=== PATIENT | male | born 1945 | race Caucasian/White ===

== ENCOUNTER → 2023-10-16 08:24 | Outpatient (REF) | payer MEDICARE, OTHER, SELFPAY | LOC: RCS 08:24 | PROVIDERS: ATTENDING PHYSICIAN Internal Medicine Cardiovascular Disease; FAMILY PHYSICIAN Family Medicine | DX: I48.0 Paroxysmal atrial fibrillation (principal); Z95.0 Presence of cardiac pacemaker; I10 Essential (primary) hypertension; I48.19 Other persistent atrial fibrillation | CPT/HCPCS: 93306 ==

== ENCOUNTER → 2023-10-23 10:43 | Outpatient (REF) | payer MEDICARE, OTHER, SELFPAY ==
[2023-10-23 12:30] LABS: PSA, Total - Diagnostic 0.26 ng/ml (0.0-4.0)
== END ==
LOC: REG 10:43
PROVIDERS: ATTENDING PHYSICIAN Family Medicine Geriatric Medicine; FAMILY PHYSICIAN Family Medicine
DX: C61 Malignant neoplasm of prostate (principal)
CPT/HCPCS: 36415; 84153

== ENCOUNTER 2023-10-25 07:44 | Day surgery (SDC) | payer MEDICARE, OTHER, SELFPAY ==
--- NOTE | 2023-10-11 11:12 | HPS.HSE ---
Family Physician
-
Family Physician: INTERVIEWE UNKNOWN - PT NOT
Chief Complaint
-
Sick sinus syndrome. Atrioventricular block.
History of Present Illness
The patient is a 78 year old male presenting today for sick sinus syndrome and atrioventricular block. He previously underwent a Medtronic pacemaker insertion secondary to these diagnoses in January 2015. His device was noted to be
nearing elective replacement indication during his most recent device interrogation in late August 2023. Given this, it is recommended he proceed with a pacemaker generator change. He denies any current complaints today such as chest pain, shortness
of breath, palpitations, nausea, vomiting, diarrhea, lightheadedness, dizziness, cough, sore throat, or fever.
Medical History
Past Medical History
Past Medical History: Reports Other
Additional Past Medical History:
1. Sick sinus syndrome and atrioventricular block, status post Medtronic pacemaker insertion 01/2015.
2. Hypertension.
3. Coronary artery disease, status post CABG 2004.
4. Carotid atherosclerosis without significant stenosis.
5. Persistent atrial fibrillation/atrial flutter, status post multiple XANDER-guided cardioversions and pulmonary vein isolation with atrial flutter ablation 11/2019; pharmacological therapy with Metoprolol Tartrate, oral anticoagulation with Eliquis.
6. PVCs.
7. Acute congestive heart failure after ablation.
8. Mild-moderate mitral regurgitation.
9. Mild aortic regurgitation.
10. Mild tricuspid regurgitation.
11. Obstructive sleep apnea, compliant with CPAP.
12. Chronic dyspnea on exertion.
13. Colon polyps.
14. Diverticulosis.
15. Hemorrhoids with history of rectal bleeding.
16. Chronic constipation.
17. Ocular migraines.
18. Arthritis.
19. Rotator cuff arthropathy of bilateral shoulders.
20. Bilateral carpal tunnel syndrome.
21. Dupuytren's contracture.
22. Prostate cancer, status post radiation 10/2022.
23. Melanoma, status post recurrent excision.
24. Squamous cell carcinoma, status post excision.
25. Erectile dysfunction.
26. Insomnia.
27. Obesity, BMI 33.7.
Past Surgical History: Reports Other
Additional Past Surgical History:
1. Medtronic pacemaker insertion.
2. Pulmonary vein isolation with atrial flutter ablation.
3. Multiple XANDER-guided cardioversions.
4. CABG.
5. Prostate fiducial marker insertion.
6. Melanoma excision x2.
7. Squamous cell carcinoma excision.
8. Colonoscopy x4.
Social History
Tobacco: Non-smoker
Alcohol: Other (Reportedly drinks a 'couple of beers' 3-4 times a week. )
Personal:
Living: Other (He lives with his in a 2 story home. )
Family History
Family History: Not pertinent
Allergies / Home Medications
Allergy/Medication List:
Home medications:
1. Atorvastatin 40 mg p.o. every evening.
2. CoQ10 200 mg p.o. every evening.
3. Cyanocobalamin 1000 mcg p.o. daily.
4. Benadryl 25 mg p.o. at bedtime.
5. Eliquis 5 mg p.o. twice a day.
6. Furosemide 40 mg p.o. daily.
7. Lisinopril 20 mg p.o. twice a day.
8. Metoprolol Tartrate 25 mg p.o. twice a day.
9. Multivitamin 1 tablet p.o. daily.
10. Psyllium 1 packet p.o. at bedtime.
11. Sildenafil 50 mg p.o. daily as needed.
12. Tamsulosin 0.4 mg p.o. daily.
Allergies: No known allergies.
Review of Systems
-
A 12 point ROS was completed and negative except as noted: Yes
Physical Exam
Vital Signs
Blood pressure 127/75. Heart rate 61. Respirations 18. Pulse ox 97% on room air.
Height 5 feet, 10 inches. Weight 106.5 kg. BMI 33.7.
Physical Exam
General: Well Developed, Well Nourished and No Apparent Distress
HEENT: NormoCephalic, Moist mucous membranes, Atraumatic and PERRLA
Respiratory: Clear
Cardiac: Regular Rhythm and Other (Pacemaker site intact. )
GI: Soft, Non Tender, Non Distended and Other (Obese. )
Musculoskeletal: Normal Gait & Station
Skin: Warm and Dry
Neuro: AO x 3 and Nonfocal/grossly intact
Laboratory Results
-
DIAGNOSTIC STUDIES as of 10/11/2023: White blood cell count 7.2. Hemoglobin 14.0. Platelet count 191,000. Sodium 137. Potassium 4.5. BUN 27. Creatinine 0.9. Glucose 99. Calcium 10.0. AST 30. ALT 25. Albumin 4.5.
EKG 10/11/2023: Ventricular paced rhythm with frequent PVCs.
Echocardiogram 06/24/2020: Technically difficult study. Normal left ventricular systolic function. Left ventricular ejection fraction is 50%. Mild concentric left ventricular hypertrophy. Mild to moderate mitral regurgitation. Mild aortic
regurgitation. Mild tricuspid regurgitation. Estimated pulmonary artery pressure of 36-41 mmHg. No significant change since the prior study of 2018.
Nuclear stress test 06/15/2020: Inconclusive EKG for ischemia given pharmacological study. Perfusion imaging reveals a medium area of mildly decreased perfusion that is fixed in the mid anterior, mid anteroseptal, and apical anterior segments
consistent with infarction. The ejection fraction is 48%. This is a moderate risk study. Compared to the prior study of 06/05/2018, the fixed defect is new. Mildly reduced ejection fraction is old.
Impression/Plan
-
IMPRESSION/PLAN:
1. Sick sinus syndrome and atrioventricular block: The patient is in need of a pacemaker generator change with Dr. Nasir Hawkins on 10/25/2023. The benefits and risks of the procedure have been explained to the patient. The patient understands these
risks and wishes to proceed.
[2023-10-11 13:07] VITALS: BMI 33.7
[2023-10-11 13:45] LABS: % Basophils 0.6 % (0-2); % Eosinophils 3.1 % (0-6); % Immature Granulocytes 0.3 % (0-0.5); % Lymphocytes 23.7 % (20.5-51.1); % Monocytes 8.8 % (1.7-9.3); % Neutrophils 63.5 % (42.2-75.2); Absolute Eosinophils 0.2 10^3/uL (0-0.7); Absolute Lymphocytes 1.7 10^3/uL (1.2-3.4); Absolute Monocytes 0.6 10^3/uL (0.1-0.6); Absolute Neutrophils 4.6 10^3/uL (1.4-6.5); Hematocrit 41.1 % (39.0-52.0); Mean Corp Hgb Conc. 34.1 g/dL (33.0-37.0); Mean Corpuscular Hgb 32.1 pg (27.0-31.0); Mean Corpuscular Volume 94.3 fL (80.0-94.0); Mean Platelet Volume 9.1 fL (7.4-10.4); Nucleated Red Blood Cells % 0 % (-); Platelet Count 191 10^3/uL (130-400); Red Blood Cell Count 4.36 10^6/uL (4.70-6.10); Red Cell Dist. Width 13.4 % (11.5-14.5); White Blood Cell Count 7.2 10^3/uL (4.8-10.8)
[2023-10-11 14:03] LABS: ALT (SGPT) 25 U/L (0-50); AST (SGOT) 30 U/L (17-59); Albumin 4.5 g/dl (3.5-5.0); Alkaline Phosphatase 73 U/L (38-126); Blood Urea Nitrogen 27 mg/dl (9-20); Carbon Dioxide 28 mmol/L (22-30); Chloride 102 mmol/L (98-107); Estimated Creatinine Clearance 81 ml/min; Glucose 99 mg/dl (70-99); Potassium 4.5 mmol/L (3.5-5.1); Sodium 137 mmol/L (135-145); Total Protein 7.4 g/dl (6.3-8.2); eGFR > 60.00
[2023-10-25 08:04] VITALS: BMI 33.0
[2023-10-25 08:16] VITALS: BP 144/78
[2023-10-25 10:55] VITALS: BP 104/63
[2023-10-25 11:10] VITALS: BP 105/66
[2023-10-25 11:25] VITALS: BP 111/64
[2023-10-25 11:40] VITALS: BP 97/58
--- NOTE | 2023-10-25 12:56 | ITS.CL.PACE ---
[employer]ice - Pacemaker Implant
Pacemaker Implant
Procedure Report:
Date of Procedure: October 25, 2023.
Procedures: Dual chamber pacemaker generator change. Pacemaker pulse generator explantation and pacemaker pulse generator implantation.
Indication: Pacemaker at [facility] from natural battery depletion. The pacemaker is for the treatment of nonreversible symptomatic bradycardia due third degree atrioventricular block.
Performing physician: Nasir Hawkins MD, [facility].
Implant: Pacemaker Pulse Generator: Medtronic; Model# [id number]; Serial# [id number] ].
Explanted Pacemaker Pulse Generator (Implanted 01/29/2015): Model# [id number]; Serial# [id number].
Retained Leads (Implanted 01/29/2015):
RA Lead: Medtronic; Model# 5076 - 45 cm; Serial# [id number].
RV Lead: Medtronic; Model# 5076 - 52 cm; Serial# [id number].
Technique: A time out was performed. The procedure site was identified. The patient was anesthetized by the anesthesia service. Preoperative cefazolin was administered prior to skin incision. The patient was prepped and draped in the usual fashion.
Local anesthetic was applied to the left prepectoral subcutaneous tissue. A 3 inch incision was made over the pulse generator. The capsule was entered with Bovie cautery. The old pacemaker pulse generator was explanted. No Bovie cautery was applied
to the lead system. The leads were appropriately attached to the new device. The pocket was irrigated with antibiotic solution. Hemostasis was excellent. The device and leads were placed in the pocket. The incision was closed in three layers with
absorbable suture. Steri-strips and an Aquacel dressing were applied. The estimated blood loss was less than 5 mL. There were no complications. No fluoroscopy.
Lead Analysis:
RA lead: Afib: 0.4 mV; Threshold: N/A; Impedance: 418 ohms.
RV lead: R: N/A; Threshold: 0.75 V @ 0.4 ms; Impedance: 437 ohms.
Final Programming: VVIR 60 - 130 bpm.
Conclusion: Uncomplicated Medtronic pacemaker change. The pacemaker system is MRI conditional.
Recommendation: Routine post pacemaker care.
cc: Tra Coppola MD and Eliseo Milton MD.
== END 2023-10-25 12:08 | disposition home or self-care (01) ==
LOC: CATH 07:44
PROVIDERS: ATTENDING PHYSICIAN Internal Medicine Cardiovascular Disease; FAMILY PHYSICIAN Family Medicine; OTHER PHYSICIAN Internal Medicine Cardiovascular Disease
DX: Z45.010 Encounter for checking and testing of cardiac pacemaker pulse generator [battery] (principal); I49.5 Sick sinus syndrome; I48.19 Other persistent atrial fibrillation; I25.10 Atherosclerotic heart disease of native coronary artery without angina pectoris; Z95.1 Presence of aortocoronary bypass graft; I08.3 Combined rheumatic disorders of mitral, aortic and tricuspid valves; R06.09 Other forms of dyspnea; G47.33 Obstructive sleep apnea (adult) (pediatric); I11.0 Hypertensive heart disease with heart failure; I50.9 Heart failure, unspecified; K57.90 Diverticulosis of intestine, part unspecified, without perforation or abscess without bleeding; Z87.19 Personal history of other diseases of the digestive system; K59.09 Other constipation; G43.B0 Ophthalmoplegic migraine, not intractable; M19.90 Unspecified osteoarthritis, unspecified site; M12.812 Other specific arthropathies, not elsewhere classified, left shoulder; M12.811 Other specific arthropathies, not elsewhere classified, right shoulder; G56.03 Carpal tunnel syndrome, bilateral upper limbs; Z85.46 Personal history of malignant neoplasm of prostate; M72.0 Palmar fascial fibromatosis [Dupuytren]; Z85.820 Personal history of malignant melanoma of skin; C44.92 Squamous cell carcinoma of skin, unspecified; N52.9 Male erectile dysfunction, unspecified; E66.9 Obesity, unspecified; Z68.33 Body mass index [BMI] 33.0-33.9, adult; G47.00 Insomnia, unspecified; Z79.01 Long term (current) use of anticoagulants; Z79.899 Other long term (current) drug therapy
CPT/HCPCS: 33228; 36415; 80053; 85025; 93005; C1785

== ENCOUNTER → 2023-11-02 06:36 | Outpatient (REF) | payer MEDICARE, OTHER, SELFPAY | LOC: EMG 06:36 | PROVIDERS: ATTENDING PHYSICIAN Orthopaedic Surgery; FAMILY PHYSICIAN Family Medicine | DX: R20.0 Anesthesia of skin (principal); G56.03 Carpal tunnel syndrome, bilateral upper limbs | CPT/HCPCS: 95886; 95911 ==

== ENCOUNTER → 2024-04-29 10:56 | Outpatient (REF) | payer MEDICARE, OTHER, SELFPAY ==
[2024-04-29 12:40] LABS: PSA, Total - Diagnostic 0.36 ng/ml (0.0-4.0)
== END ==
LOC: REG 10:56
PROVIDERS: ATTENDING PHYSICIAN Family Medicine Geriatric Medicine; FAMILY PHYSICIAN Family Medicine
DX: C61 Malignant neoplasm of prostate (principal)
CPT/HCPCS: 36415; 84153

== ENCOUNTER → 2024-07-31 14:32 | Outpatient (REF) | payer MEDICARE, OTHER, SELFPAY ==
[2024-07-31 16:13] LABS: PSA, Total - Diagnostic 0.34 ng/ml (0.0-4.0)
== END ==
LOC: REG 14:32
PROVIDERS: ATTENDING PHYSICIAN Family Medicine
DX: R97.20 Elevated prostate specific antigen [PSA] (principal); C61 Malignant neoplasm of prostate
CPT/HCPCS: 36415; 84153

== ENCOUNTER → 2024-10-21 07:49 | Outpatient (REF) | payer MEDICARE, OTHER, SELFPAY | LOC: RCS 07:49 | PROVIDERS: ATTENDING PHYSICIAN Internal Medicine Cardiovascular Disease; FAMILY PHYSICIAN Family Medicine | DX: Z95.1 Presence of aortocoronary bypass graft (principal); Z95.0 Presence of cardiac pacemaker; I25.10 Atherosclerotic heart disease of native coronary artery without angina pectoris; I35.0 Nonrheumatic aortic (valve) stenosis; I27.20 Pulmonary hypertension, unspecified | CPT/HCPCS: 93306 ==

== ENCOUNTER → 2025-02-05 09:36 | Outpatient (REF) | payer MEDICARE, OTHER, SELFPAY ==
[2025-02-05 11:30] LABS: Uric Acid 7.0 mg/dl (3.5-8.5)
[2025-02-05 11:45] LABS: PSA, Total - Screen 0.62 ng/ml (0.0-4.0)
== END ==
LOC: REG 09:36
PROVIDERS: ATTENDING PHYSICIAN Family Medicine; OTHER PHYSICIAN Family Medicine Geriatric Medicine
DX: Z87.39 Personal history of other diseases of the musculoskeletal system and connective tissue (principal); Z12.5 Encounter for screening for malignant neoplasm of prostate
CPT/HCPCS: 36415; 84550; G0103

== ENCOUNTER → 2025-05-19 10:18 | Outpatient (REF) | payer MEDICARE, OTHER, SELFPAY ==
[2025-05-19 12:15] LABS: PSA, Total - Diagnostic 0.78 ng/ml (0.0-4.0)
== END ==
LOC: REG 10:18
PROVIDERS: ATTENDING PHYSICIAN Family Medicine Geriatric Medicine; FAMILY PHYSICIAN Family Medicine
DX: C61 Malignant neoplasm of prostate (principal); Z12.5 Encounter for screening for malignant neoplasm of prostate; R97.20 Elevated prostate specific antigen [PSA]; Z85.46 Personal history of malignant neoplasm of prostate
CPT/HCPCS: 36415; 84153